=== PATIENT | female | born 1955 | race Two or more races ===

== ENCOUNTER 2021-02-15 22:57 | Emergency (ER) | payer MEDICARE ==
[~2021-02-15] VITALS: Ht 160 cm; Wt 106.1 kg
--- NOTE | 2021-02-15 23:13 | NUR ---
ED Nurse Note: epigastric abdominal pain x1 day no nausea or diarrhea, hx of HTN, covid + september, prediabetic, high cholesterol, aox4, ambulatory, vitals stable
--- NOTE | 2021-02-15 23:26 | NUR ---
18g iv to rac established. blood and urine collected and sent to lab.
--- NOTE | 2021-02-15 23:27 | Emergency Room Report ---
History of Present Illness General Chief Complaint: Abdominal Pain Source: Patient Present Illness HPI This is a 65-year-old female with history of high blood pressure and prediabetes. She also has hysterectomy and appendectomy in the past. She presents with complaint of abdominal pain. Onset yesterday. Pain is epigastric radiating to the pelvic area. Pain is sharp in nature. Pain is 8 out of 10. Nothing made it better. Nothing made it worse. No fever chills but no nausea no vomiting. He denies any trauma. No urinary complaint. Allergies: Coded Allergies: No Known Allergies (Unverified , 02/15/21) COVID-19 Screening Contact w/high risk pt: No Experienced COVID-19 symptoms?: No COVID-19 Testing performed GUSSET FOLDER: No Patient History Past Medical History: see triage record, old chart reviewed, HTN Past Surgical History: appy, hysterectomy Pertinent Family History: none Social History: Denies: smoking Now: No Immunizations: other Reviewed Nursing Documentation: PMH: Agreed; PSxH: Agreed Review of Systems Eye: Denies: eye pain, blurred vision ENT: Denies: ear pain, nose congestion, throat swelling Respiratory: Denies: cough, shortness of breath Cardiovascular: Denies: chest pain, palpitations Gastrointestinal: Reports: abdominal pain; Denies: diarrhea, nausea, vomiting Musculoskeletal: Denies: back pain, joint pain Skin: Denies: rash Neurological: Denies: headache, numbness Endocrine: Denies: increased thirst, increased urine Hematologic/Lymphatic: Denies: easy bruising All Other Systems: negative except mentioned in HPI Physical Exam Vital Signs Date Time Temp Pulse Resp B/P (MAP) Pulse Ox O2 Delivery O2 Flow Rate FiO2 02/15/21 23:05 98.8 69 20 154/83 (106) 100 Room Air Vitals with high blood pressure Sp02 EP Interpretation: reviewed, normal General Appearance: well appearing, no apparent distress, alert Head: normocephalic, atraumatic Eyes: bilateral eye PERRL, bilateral eye EOMI ENT: hearing grossly normal, normal pharynx Neck: full range of motion, supple, no meningismus Respiratory: chest non-tender, lungs clear, normal breath sounds Cardiovascular #1: regular rate, rhythm, no murmur Gastrointestinal: normal bowel sounds, no mass, no organomegaly, no bruit, non- distended, tenderness - Mild Musculoskeletal: back normal, normal range of motion, gait/station normal Psychiatric: mood/affect normal Medical Decision Making Diagnostic Impression: Primary Impression: UTI (urinary tract infection) Qualified Codes: N30.00 - Acute cystitis without hematuria Additional Impression: Cholelithiasis Qualified Codes: K80.20 - Calculus of gallbladder without cholecystitis without obstruction ER Course This patient presents for abdominal pain. CT scan showed gallstone and possible passed kidney stone. There is no evidence of any obstruction or acute abdomen. Pain is well controlled now. She does have urinary tract infection. Antibiotics started here. CT/MRI/US Diagnostic Results CT/MRI/US Diagnostic Results : Imaging Test Ordered: CT abdomen and pelvis Impression Read by radiologist. IMPRESSION: 1. Minimal right hydronephrosis. No visualized nephrolithiasis. This is nonspecific and may represent a recently passed stone versus infection. 2. Cholelithiasis. 3. Diverticulosis. 4. Appendectomy. Last Vital Signs Date Time Temp Pulse Resp B/P (MAP) Pulse Ox O2 Delivery O2 Flow Rate FiO2 02/15/21 23:05 98.8 69 20 154/83 (106) 100 Room Air Status: improved Disposition: HOME, SELF-CARE Condition: Stable Scripts Ibuprofen* (MOTRIN*) 600 Mg Tablet 600 MG ORAL Q6H PRN for For Pain, #30 TAB 0 Refills Prov: Clive Houston MD 02/16/21 Cephalexin* (KEFLEX*) 500 Mg Capsule 500 MG ORAL TID, #21 CAP Prov: Clive Houston MD 02/16/21 Referrals: KISHORE CHAO (PCP) Additional Instructions: Follow-up with your doctor in 7 days. Return if symptoms worsen. Clive Houston MD Feb 15, 2021 23:27
[2021-02-15] MEDS ORDERED: Ketorolac 30mg Inj IV ONE (23:30)
[2021-02-15 23:35] LABS: BILIRUBIN, URINE NEGATIVE (NEGATIVE); COLOR,URINE PALE YELLOW; GLUCOSE, URINE (UA) NEGATIVE (NEGATIVE); KETONES,URINE NEGATIVE (NEGATIVE); LEUKOCYTE ESTERASE ,URINE 3+ (NEGATIVE); NITRITE,URINE NEGATIVE (NEGATIVE); PH,URINE 6 (4.5-8.0); PROTEIN,URINE NEGATIVE (NEGATIVE); UROBILINOGEN,URINE NORMAL MG/DL (0.0-1.0)
[2021-02-15 23:36] LABS: BASOPHILS % (AUTO) 0.7 % (0.0-2.0); EOSINOPHILS % (AUTO) 2.3 % (0.0-3.0); HEMATOCRIT 46.7 % (37.0-47.0); HEMOGLOBIN 14.6 G/DL (12.0-16.0); LYMPHOCYTES % (AUTO) 36.5 % (20.0-45.0); MEAN CORPUSCULAR VOLUME 87 FL (80-99); NEUTROPHILS % (AUTO) 51.6 % (45.0-75.0); PLATELET COUNT 389 K/UL (150-450); RED BLOOD COUNT 5.35 M/UL (4.20-5.40); RED CELL DISTRIBUTION WIDTH 13.6 % (11.6-14.8); WHITE BLOOD COUNT 9.8 K/UL (4.8-10.8)
[2021-02-15 23:45] LABS: CALCIUM 9.8 MG/DL (8.5-10.1); POTASSIUM 3.4 MMOL/L (3.5-5.1)
[2021-02-15 23:50] LABS: ALBUMIN 4.4 G/DL (3.4-5.0); ALBUMIN/GLOBULIN RATIO 1.3 (1.0-2.7); BILIRUBIN,TOTAL 0.4 MG/DL (0.2-1.0)
[2021-02-15 23:53] LABS: APPEARANCE,URINE SLIGHTLY CLOUDY
[2021-02-16] MEDS ORDERED: cefTRIAXone 1 GM in NS 55 ML IVPB ONE (00:30)
--- NOTE | 2021-02-16 00:50 | Diagnostic Imaging Report ---
EXAM: CT Abdomen and Pelvis Without Intravenous Contrast CLINICAL HISTORY: Abdominal pain TECHNIQUE: Axial computed tomography images of the abdomen and pelvis without intravenous contrast. CTDI is 14.4 mGy and DLP is 751.1 mGy-cm. One or more of the following dose reduction techniques were used: automated exposure control, adjustment of the mA and/or kV according to patient size, use of iterative reconstruction technique. COMPARISON: No relevant prior studies available. FINDINGS: Lung bases: Unremarkable. No mass. No consolidation. ABDOMEN: Liver: Unremarkable. Gallbladder and bile ducts: Cholelithiasis. No ductal dilation. Pancreas: Unremarkable. No ductal dilation. Spleen: Unremarkable. No splenomegaly. Adrenals: Unremarkable. No mass. Kidneys and ureters: Minimal right hydronephrosis. No visualized nephrolithiasis. 5.9 cm simple-appearing right renal cyst. No follow-up is needed. No left hydronephrosis. Stomach and bowel: Diverticulosis. No obstruction. No mucosal thickening. PELVIS: Appendix: Appendectomy. Bladder: Unremarkable. No stones. Reproductive: Uterus is absent. ABDOMEN and PELVIS: Intraperitoneal space: Unremarkable. No free air. No significant fluid collection. Bones/joints: No fracture. There are degenerative changes of the spine. No dislocation. Soft tissues: Unremarkable. Vasculature: There is minimal atherosclerosis. No aneurysm. Lymph nodes: Unremarkable. No enlarged lymph nodes. IMPRESSION: 1. Minimal right hydronephrosis. No visualized nephrolithiasis. This is nonspecific and may represent a recently passed stone versus infection. 2. Cholelithiasis. 3. Diverticulosis. 4. Appendectomy.
[2021-02-16] MEDS ORDERED: CEPHALEXIN500 MG ORAL (00:56)
[2021-02-16] MEDS ORDERED: IBUPROFEN600 M1 ORAL (00:56)
--- NOTE | 2021-02-16 00:56 | NUR ---
pt aox3 given and understands discharge instructions. ambulatory out w steady gait
[2021-02-16 00:57] VITALS: BP 154/83
== END 2021-02-16 00:57 | disposition home or self-care (01) ==
LOC: EMR 23:18
DX: N30.00 Acute cystitis without hematuria (principal); K80.20 Calculus of gallbladder without cholecystitis without obstruction; R73.03 Prediabetes; I10 Essential (primary) hypertension; Z90.710 Acquired absence of both cervix and uterus; Z90.89 Acquired absence of other organs; K57.90 Diverticulosis of intestine, part unspecified, without perforation or abscess without bleeding; N13.30 Unspecified hydronephrosis
CPT/HCPCS: 36415; 74176; 80053; 81003; 83690; 85025; 87086; 96361; 96365; 96375; 99284; J0696; J1885; J7030